=== PATIENT | female | born 1985 | race Caucasian/White ===

== ENCOUNTER 2017-04-19 14:43 | Inpatient (IN) ==
--- NOTE | 2017-04-19 14:12 | OB/GYN History & Physical ---
Date of Encounter: 04/19/17 Time of Encounter: 13:50 Assessment and Plan (1) 39 weeks gestation of Current visit: Yes Status: Acute (2) Uterine contractions Current visit: Yes Status: Acute - NST assessment. - Monitor cervical change. - UDS. History of Present Illness Chief complaint: Uterine contractions HPI: Ms. Carbajal is a 31 year old female at 39 weeks gestation that presents for labor evaluation. Patient says that she has been getting contractions since 0400 am this morning that have been 2.5 minutes apart. She admits to good movement. She denies any vaginal fluid leakage, but she does says that she had some minor vaginal bleeding yesterday. She denies any VALENCIA , vision changes, or nausea. She did have an episode of vomiting yesterday, but denies any hematemesis. She denies any fever, dysuria, or diarrhea. GBS: negative HIV Ag/Ab: non-reactive T. Pallidum Ab: negative Rubella Ab: positive Varicella Ab: positive Blood type: O+ Past Med Surg Social Fam HX - Past Medical History Medical history: non-contributory Psychiatric history: no psych history - Past Surgical History Surgical History: other - Social History Smoking Status: Never smoker Smokeless Tobacco Status: No Alcohol use: none Drug use: none - Family History Mother Living Status: Still Living Hx Family Cardiac Disorders: Yes (HTN) Father Living Status: Still Living Hx Family Endocrine Disorder: Yes Obstetrical History - Pregnancies : 4 Para: 2 Term: 2 : 0 Ab's: 1 Livin Medications and Allergies Ferrous Sulfate 04/09/17 [History] Tablet 04/09/17 [History] Ranitidine HCl 75 mg PO 04/09/17 [History] 3 Allergy/AdvReac Type Severity Reaction Status Date / Time montelukast [From Singulair] AdvReac Nightmare Verified 04/09/17 02:19 Exam - Vital Signs Vital signs: BP: 117/77 HR: 90 FHR: 174 [place]: 21 - Constitutional Constitutional: well developed, well nourished, no acute distress, average body habitus - Lungs Respiratory exam: CTAB - Cardiovascular Cardiovascular exam: RRR, +S1, +S2 - Abdomen Abdomen: Present: bowel sounds normal, gravid, non tender - Extremities Extremities exam: full ROM, normal capillary refill, normal inspection, radial pulses palpable and symmetrical Deep Tendon Reflex Grade: 2+ Normal - Cervix Dilation: 5 (per nurse) Effacement: 90 (per nurse) Station: -1 Results All other labs normal. - VTE Reasons for not Prescribing Prophylaxis: Treatment not Indicated - Low risk for VTE - Attending Attestation I examined this patient and my medical decision-making was reviewed with the Resident Physician. I agree with the documented findings, disposition and treatment plan as described except to the extent set forth below. Liban Long
[~2017-04-19 14:43] MED LIST: Famotidine 20 MG/2 ML VIAL IVP PRN; Naloxone 0.4 MG/ML INJ IVP PRN; Ringers Solution, Lactated 1,000 ML ONE
[2017-04-19 14:45] LABS: Basophils % 0.2 %; Eosinophils # 0.1 K/mcL (0.0-0.6); Eosinophils % 0.6 %; Hematocrit 30.7 % (35.3-44.9); Hemoglobin 10.6 g/dL (11.5-15.4); Immature Granulocytes % 0.5 % (0-4); Lymphocytes % 19.2 %; Mean Corpuscular HGB Conc 34.5 g/dL (31.6-35.5); Mean Corpuscular Hemoglobin 31.1 pg (28.0-33.3); Mean Platelet Volume 9.2 fL (9.4-12.4); Monocytes # 0.7 K/mcL (0.0-1.3); Monocytes % 6.7 %; Neutrophils # 7.6 K/mcL (1.6-8.9); Platelet Count 367 K/mcL (140-400); Red Blood Count 3.41 M/mcL (3.82-4.97); Red Cell Distribution Width 13.2 % (11.5-14.5); Segmented Neutrophils % 72.8 %
[2017-04-19] MEDS ORDERED: Ringers Solution, Lactated 1,000 ML IVC SCH (14:45)
--- NOTE | 2017-04-19 14:47 | OB Labor Progress Note ---
Date of Encounter: 04/19/17 Time of Encounter: 14:45 Labor Progress Note - Subjective Subjective: patient states contractions are getting stronger - Cervix Cervix: 6/90/0 AROM clear fluid - Heart Tones Heart Tones: FSM placed FHT's 120-130 reactive with accelerations noted - [place]: IUPC placed contractions every 3 min - Plan Plan: continue current care anticipate
[2017-04-19 14:51] LABS: Amphetamine Screen,Urine Negative ng/mL (Cutoff=1000); Barbiturate Screen,Urine Negative ng/mL (Cutoff=200); Benzodiazepines Screen,Urine Negative ng/mL (Cutoff=200); Cannabinoid Screen,Urine Negative ng/mL (Cutoff = 50); Cocaine Screen,Urine Negative ng/mL (Cutoff= 300); Opiate Screen,Urine Negative ng/mL (Cutoff=300); Phencyclidine Screen,Urine Negative ng/mL (Cutoff=25)
[2017-04-19] MEDS ORDERED: Lidocaine 1% 20 ML MDV ONE (15:48)
[2017-04-19] MEDS ORDERED: Oxytocin 20 units/ LR 1000 mL 20 UNIT/1,000 ML BAG IVC ONE (15:56)
[2017-04-19] MEDS ORDERED: *HR* Oxytocin 10 UNIT/ML VIAL IM ONE (16:00)
--- NOTE | 2017-04-19 16:15 | OB/GYN Procedure Note ---
Delivery - Delivery Date: 04/19/17 Provider: Felipe Long Intrapartum events: precipitous labor- <3hr Delivery induction: none Delivery augmentation: rupture of membranes Delivery monitor: external FHT, external uterine, internal FHT, internal uterine Anesthesia: local Estimated Blood Loss: 200 - (s) A Delivery Date: 04/19/17 Delivery Time: 15:47 Presentation: vertex Position: NOMAN Route of delivery: Gender: Female Viability: Viable Pounds: 7 Ounces: 10 Weight Gram: 3.45 kg at 1 minute: 8 at 5 mins: 9 Shoulder Dystocia: not encountered Shoulder Dystocia Maneuvers: João maneuver Specimens collected: cord blood Placenta: spontaneous Cord: nuchal cord - Repair Episiotomy: none Laceration Description: Perineal - 1st Degree (left with extension into labia minora) - Complications Delivery complications: none Delivery comments: Patient is a 31-year-old 4 para 2011 39-0/7 weeks who presented for evaluation for labor. Upon arrival to labor and delivery patient was noted to be in active labor tiffanie every 2-3 minutes and was 5 cm. Patient has a history of cone quickly once in labor she was admitted she was artificially ruptured and internalized and she was 6 cm. Patient progressed rapidly decreased warrants delivering a viable female in right occiput anterior presentation at 1547. There was no nuchal cord but it was a compound presentation. There was no meconium, was bulb suctioned on the abdomen, weight was 7 lbs. 10 oz. Placenta was sent to [facility] with three- vessel cord, marketing content coordinator Dr. Long, event sales assistant Dr Sewell PGY1, anesthesia local, estimated blood loss 200 mL. Patient had a left periurethral extending into the left labia minora repaired with 4-0 Vicryl in usual fashion. Cervix and vagina was visualized intact. She had a small periurethral abrasion was not bleeding no stitches needed. Uterus was explored fundus was palpated no retained products noted. Patient tolerated the delivery well she will be observed 2 rows before being taken floor. All needles lap sponge counts were correct 3. - Disposition Mom disposition: stable in LDR [place] disposition: stable in LDR
[2017-04-19] MEDS ORDERED: Ibuprofen 600 MG TABLET PO PRN (18:20)
[2017-04-19] MEDS ORDERED: Acetaminophen 325 MG TABLET PO PRN (18:20)
[2017-04-19] MEDS: Acetaminophen 325 MG TABLET PO PRN (20:44)
[2017-04-20] MEDS: Acetaminophen 325 MG TABLET PO PRN ×2 (04:45→16:10)
[2017-04-20 05:13] LABS: Basophils % 0.3 %; Eosinophils # 0.1 K/mcL (0.0-0.6); Eosinophils % 0.7 %; Hemoglobin 10.6 g/dL (11.5-15.4); Immature Granulocytes % 0.8 % (0-4); Lymphocytes # 2.2 K/mcL (0.6-4.6); Mean Corpuscular HGB Conc 34.2 g/dL (31.6-35.5); Mean Corpuscular Volume 90.6 fL (83.0-100.0); Mean Platelet Volume 9.3 fL (9.4-12.4); Monocytes # 1.2 K/mcL (0.0-1.3); Monocytes % 7.8 %; Neutrophils # 11.2 K/mcL (1.6-8.9); Platelet Count 313 K/mcL (140-400); Red Blood Count 3.42 M/mcL (3.82-4.97); Red Cell Distribution Width 13.1 % (11.5-14.5); Segmented Neutrophils % 75.4 %
[2017-04-20] MEDS ORDERED: Prenatal Vit/FA 1 EACH TABLET PO SCH ×2 (09:00)
--- NOTE | 2017-04-20 09:07 | OB/GYN Progress Note ---
Date of Encounter: 04/20/17 Time of Encounter: 09:02 - Assessment and Plan (1) Vaginal delivery Current Visit: Yes Status: Acute Patient is recovering well s/p normal vaginal delivery -Stable, PPD#1 -Meeting all post milestones -Anticipate discharge tomorrow, unless patient desires discharge today. Subjective - Subjective Principal diagnosis: Vaginal Delivery Interval history: 31 yo female s/p spontaneous vaginal delivery. This morning she is resting comfortably. Patient reports heavy vaginal bleeding but not soaking 1 pad per hour or large clots. She reports is going well and that her milk is in. She denies any shortness of breath, headaches, abdominal pain, or trouble urinating. Patient reports: appetite normal, voiding normally, pain well controlled, ambulating normally Felch: doing well, nursing well Objective - Latest Vital Signs Latest vital signs: Vital Signs Temp Pulse Pulse Resp BP Pulse Ox 04/20/17 07:40 97.7 F 80 16 111/75 98 04/20/17 04:00 97.9 F 84 80 16 118/80 04/19/17 20:10 97.9 F 85 16 108/71 98 04/19/17 20:00 16 04/19/17 18:58 98.3 F 85 14 119/68 99 04/19/17 18:00 98 F 69 14 116/75 100 Intake and Output 04/19/17 04/20/17 04/20/17 23:59 07:59 15:59 Output Total 300 / 300 1050 / 1050 Balance -300 / -300 -1050 / -1050 Output: Urine 300 / 300 1050 / 1050 Other: # Voids 2 Weight 76.793 kg 77.7 kg Patient Weight 04/20/17 23:59 Weight 77.7 kg - Exam Lungs: bilateral: normal Chest: Normal S1, Normal S2 Extremities: Present: normal. Absent: tenderness, edema Abdomen: Present: normal appearance, soft. Absent: tenderness Uterus: Present: normal, firm Uterus Position: 1 Finger Below Umbilicus - Labs Labs: Laboratory Results - last 24 hr 04/19/17 04/19/17 04/20/17 14:20 14:20 05:06 WBC 10.5 14.9 H RBC 3.41 L 3.42 L Hgb 10.6 L 10.6 L Hct 30.7 L 31.0 L MCV 90.0 90.6 MCH 31.1 31.0 MCHC 34.5 34.2 RDW 13.2 13.1 Plt Count 367 313 MPV 9.2 L 9.3 L Immature Gran % 0.5 0.8 Seg Neutrophils % 72.8 75.4 Lymphocytes % 19.2 15.0 Monocytes % 6.7 7.8 Eosinophils % 0.6 0.7 Basophils % 0.2 0.3 Neutrophils # 7.6 11.2 H Lymphocytes # 2.0 2.2 Monocytes # 0.7 1.2 Eosinophils # 0.1 0.1 Basophils # 0.0 0.0 Immature Plt Fraction 2.0 Urine Opiates Screen Negative Ur Barbiturates Screen Negative Ur Phencyclidine Scrn Negative Ur Amphetamines Screen Negative U Benzodiazepines Scrn Negative Urine Cocaine Screen Negative U Marijuana (THC) Screen Negative
[2017-04-20] MEDS ORDERED: Ibuprofen 600 MG TABLET PO PRN (20:42)
[2017-04-20 22:23] VITALS: BP 114/76
--- NOTE | 2017-04-20 23:34 | Discharge Summary ---
Date of Encounter: 04/20/17 Time of Encounter: 23:32 - Discharge Diagnosis (1) Vaginal delivery Priority: Primary Status: Acute Comments: Pt states pain well managed, , bleeding has improved, desires discharge in early AM. - Discharge Medications Prescriptions: Ibuprofen [Motrin] 600 mg PO Q6HR PRN #60 tablet PRN Reason: Cramping Docusate [Colace] 100 mg PO BID #60 capsule Home Medications: Ferrous Sulfate 04/09/17 [History] Tablet 04/09/17 [History] Ranitidine HCl 75 mg PO 04/09/17 [History] Acetaminophen [Tylenol] 650 mg PO Q6HR PRN tablet 04/20/17 [Rx] Docusate [Colace] 100 mg PO BID #60 capsule 04/20/17 [Rx] Ferrous Sulfate 325 mg PO DAILY tablet 04/20/17 [Rx] Ibuprofen [Motrin] 600 mg PO Q6HR PRN #60 tablet 04/20/17 [Rx] Vit/FA 1 each PO DAILY tablet 04/20/17 [Rx] Allergies/Adverse Reactions: 3 Allergy/AdvReac Type Severity Reaction Status Date / Time montelukast [From [facility]] AdvReac Nightmare Verified 04/09/17 02:19 Data Procedures and tests throughout hospitalization: Laboratory Tests 04/19/17 04/19/17 04/20/17 14:20 14:20 05:06 WBC 10.5 14.9 H RBC 3.41 L 3.42 L Hgb 10.6 L 10.6 L Hct 30.7 L 31.0 L MCV 90.0 90.6 MCH 31.1 31.0 MCHC 34.5 34.2 RDW 13.2 13.1 Plt Count 367 313 MPV 9.2 L 9.3 L Immature Gran % 0.5 0.8 Seg Neutrophils % 72.8 75.4 Lymphocytes % 19.2 15.0 Monocytes % 6.7 7.8 Eosinophils % 0.6 0.7 Basophils % 0.2 0.3 Neutrophils # 7.6 11.2 H Lymphocytes # 2.0 2.2 Monocytes # 0.7 1.2 Eosinophils # 0.1 0.1 Basophils # 0.0 0.0 Immature Plt Fraction 2.0 Urine Opiates Screen Negative Ur Barbiturates Screen Negative Ur Phencyclidine Scrn Negative Ur Amphetamines Screen Negative U Benzodiazepines Scrn Negative Urine Cocaine Screen Negative U Marijuana (THC) Screen Negative Labs on day of discharge: Labs from last 24 hours 04/20/17 05:06 WBC 14.9 H RBC 3.42 L Hgb 10.6 L Hct 31.0 L MCV 90.6 MCH 31.0 MCHC 34.2 RDW 13.1 Plt Count 313 MPV 9.3 L Immature Gran % 0.8 Seg Neutrophils % 75.4 Lymphocytes % 15.0 Monocytes % 7.8 Eosinophils % 0.7 Basophils % 0.3 Neutrophils # 11.2 H Lymphocytes # 2.2 Monocytes # 1.2 Eosinophils # 0.1 Basophils # 0.0 Date of admission: 04/19/17 14:43 Primary care physician: PCP NONE Consults: 04/19/17 18:20 Consult to Lasting Floorworker [CONS] Routine Comment: Vaginal delivery, consult needed Discharging clinician: Alysia Ríos Anticipated date of discharge: 04/20/17 - Patient Status Disposition: Home, Self-Care Condition: Good Functional capacity at discharge: independent ambulation Overall status at discharge: patient is back to baseline - Discharge Instructions Follow Up With: NONE,PCP [Primary Care Provider] - - Diet and Activity Activity: resume usual activities as tolerated Diet: regular diet Hospital Course Reason for admission: active labor Delivery: Episiotomy: none Laceration: 1st degree Other procedures: none complications: none Discharge diagnosis: IUP at term delivered baby: male Hospital course: Delivery - Delivery Date: 04/19/17 Provider: Felipe Long Intrapartum events: precipitous labor- <3hr Delivery induction: none Delivery augmentation: rupture of membranes Delivery monitor: external FHT, external uterine, internal FHT, internal uterine Anesthesia: local Estimated Blood Loss: 200 - Infant (s) Infant A Delivery Date: 04/19/17 Delivery Time: 15:47 Presentation: vertex Position: NOMAN Route of delivery: Gender: Female Viability: Viable Pounds: 7 Ounces: 10 Weight Gram: 3.45 kg at 1 minute: 8 at 5 mins: 9 Shoulder Dystocia: not encountered Shoulder Dystocia Maneuvers: João maneuver Specimens collected: cord blood Placenta: spontaneous Cord: nuchal cord - Repair Episiotomy: none Laceration Description: Perineal - 1st Degree (left with extension into labia minora) - Complications Delivery complications: none Delivery comments: Patient is a 31-year-old 4 para 2012 39-0/7 weeks who presented for evaluation for labor. Upon arrival to labor and delivery patient was noted to be in active labor tiffanie every 2-3 minutes and was 5 cm. Patient has a history of cone quickly once in labor she was admitted she was artificially ruptured and internalized and she was 6 cm. Patient progressed rapidly decreased warrants delivering a viable female infant in right occiput anterior presentation at 1547. There was no nuchal cord but it was a compound presentation. There was no meconium, was bulb suctioned on the abdomen, weight was 7 lbs. 10 oz. Placenta was sent to spontaneously with three- vessel cord, dentist attendant Dr. Long, minister assistant Dr Sewell PGY1, anesthesia local, estimated blood loss 200 mL. Patient had a left periurethral extending into the left labia minora repaired with 4-0 Vicryl in usual fashion. Cervix and vagina was visualized intact. She had a small periurethral abrasion was not bleeding no stitches needed. Uterus was explored fundus was palpated no retained products noted. Patient tolerated the delivery well she will be observed 2 rows before being taken floor. All needles lap sponge counts were correct 3. - Disposition Mom disposition: stable in PP and appropriate for discharge Time Attestation: Total time spent providing and/or coordinating discharge services: Time Spent: Less than 30 minutes Exam - Constitutional Vitals: Temp Pulse Resp BP Pulse Ox 98.1 F 74 16 114/76 97 04/20/17 21:00 04/20/17 21:00 04/20/17 21:00 04/20/17 21:00 04/20/17 21:00 General appearance IM: A&O X 3 - Respiratory Respiratory exam: Present: CTAB - Cardiovascular Cardiovascular exam IM: Present: RRR - GI/Abdominal GI/Abdominal exam IM: soft - Uterine Tone: Firm Uterus Position: At Umbilicus - Extremities Exam Extremities exam IM: Present: normal capillary refill, normal inspection - Neurological Exam Neurological exam: normal gait, oriented X3 - Psychiatric Additional comments: Reports good mood.
== END 2017-04-20 23:50 | disposition home or self-care (01) | DRG 560 ==
LOC: 1NENULAB → 1NENUOBS 18:00
PROVIDERS: ADMIT Obstetrics & Gynecology; ATTEND Obstetrics & Gynecology

== ENCOUNTER 2018-11-29 07:53 | Inpatient (IN) ==
[2018-11-29] MEDS ORDERED: Ondansetron 4 MG/2 ML VIAL IVP PRN (08:01)
[2018-11-29] MEDS ORDERED: *HR* Nalbuphine 10 MG/ML AMPUL IVP PRN (08:01)
[2018-11-29] MEDS ORDERED: Famotidine 20 MG/2 ML VIAL IVP PRN (08:01)
[2018-11-29] MEDS ORDERED: Metoclopramide 10 MG/2 ML VIAL IVP PRN (08:01)
[2018-11-29] MEDS ORDERED: Naloxone 0.4 MG/ML INJ IVP PRN (08:01)
[2018-11-29] MEDS ORDERED: Ringers Solution, Lactated 1,000 ML IVC SCH (08:15)
[2018-11-29 08:30] LABS: White Blood Count 10.8 K/mcL (4.3-11.1)
[2018-11-29 08:31] LABS: Basophils % 0.3 %; Eosinophils # 0.1 K/mcL (0.0-0.6); Eosinophils % 1.1 %; Hematocrit 33.7 % (35.3-44.9); Hemoglobin 11.6 g/dL (11.5-15.4); Immature Granulocytes % 0.6 % (0-4); Lymphocytes # 1.8 K/mcL (0.6-4.6); Lymphocytes % 17.1 %; Mean Corpuscular HGB Conc 34.4 g/dL (31.6-35.5); Mean Corpuscular Hemoglobin 32.1 pg (28.0-33.3); Mean Corpuscular Volume 93.4 fL (83.0-100.0); Mean Platelet Volume 9.6 fL (9.4-12.4); Monocytes # 0.7 K/mcL (0.0-1.3); Monocytes % 6.8 %; Platelet Count 267 K/mcL (140-400); Red Blood Count 3.61 M/mcL (3.82-4.97); Red Cell Distribution Width 13.5 % (11.5-14.5); Segmented Neutrophils % 74.1 %
[2018-11-29 08:34] LABS: Amphetamine Screen,Urine Negative ng/mL (Cutoff=1000); Barbiturate Screen,Urine Negative ng/mL (Cutoff=200); Benzodiazepines Screen,Urine Negative ng/mL (Cutoff=200); Cannabinoid Screen,Urine Negative ng/mL (Cutoff = 50); Cocaine Screen,Urine Negative ng/mL (Cutoff= 300); Opiate Screen,Urine Negative ng/mL (Cutoff=300); Phencyclidine Screen,Urine Negative ng/mL (Cutoff=25)
--- NOTE | 2018-11-29 08:36 | OB/GYN History & Physical ---
Date of Encounter: 11/29/18 Time of Encounter: 08:33 Assessment and Plan (1) and not yet delivered in third trimester Current visit: Yes Status: Acute (2) Elective induction of labor planned Current visit: Yes Status: Acute We will start Pitocin per protocol plan is to anticipate vaginal delivery (3) 39 weeks gestation of Current visit: No Status: Acute History of Present Illness HPI: Ms. Carbajal is a 33 year old female 5 para 3013 at 39-0/7 weeks who presented for induction of labor secondary with favorable cervix. Patient was seen office last week was noted to be 5 cm dilated has been having contractions for the past few weeks and it was felt since she goes relatively fast once she hit 39 weeks should report in for an induction. She is tiffanie every 2-4 minutes on her own she is feeling them but nothing that is uncomfortable. She states for the last after she was ruptured she delivered within an hour. Patient is not wanting an epidural at this time. Patient's course has been unremarkable. She denies any leaking of fluid still having good movement. Patient is GBS negative, O+, rubella positive, Varicella positive. Past Med Surg Social Fam HX - Past Medical History Source: patient, old records reviewed Medical history: non-contributory Additional medical history: Hx lyme disease when she was a child Psychiatric history: no psych history - Past Surgical History Surgical History: other Additional surgical history: dental surgery - Social History Smoking Status: Never smoker Smokeless Tobacco Status: No Alcohol use: none Drug use: none Occupational status: employed Current living situation: Home - Independent Activity Level: Independent ambulation Recent Out of Country Travel Within the Last 8 Weeks: No Exposure or Possible Exposure to Illness During Travel: No - Family History Mother Living Status: Still Living Hx Family Cardiac Disorders: Yes (HTN) Father Living Status: Still Living Hx Family Endocrine Disorder: Yes - Additional Family History Additional family history: Family history noncontributory Obstetrical History - Pregnancies : 5 Para: 3 Term: 3 : 0 Ab's: 1 Livin Medications and Allergies Tablet 04/09/17 [History] Ferrous Sulfate 325 mg PO DAILY tablet 04/20/17 [Rx] Allergy/AdvReac Type Severity Reaction Status Date / Time montelukast [From Singulair] AdvReac Nightmare Verified 04/09/17 02:19 Review of System OB All systems PM: reviewed and no additional remarkable complaints except as s tated - Menstruation Menstruation: other (Complaining of contractions every 3-5 minutes for the past couple weeks still tolerable) Exam - Constitutional Constitutional: well developed, well nourished, no acute distress, average body habitus - HEENT HEENT: EOMI, PERRL, Normocephaly, Mucus Membranes Moist - Neck Neck exam: full ROM - Lungs Respiratory exam: CTAB - Cardiovascular Cardiovascular exam: RRR - Abdomen Abdomen: Present: bowel sounds normal, gravid ( heart tones 140s reactive contractions every 2-3 minutes irregular) - Cervix Dilation: 5 Effacement: 80 Station: 0 - Uterus Uterus exam: Present: enlarged Results Result Diagrams: 11/29/18 08:10 Abnormal lab results RBC 3.61 M/mcL (3.82-4.97) L 11/29/18 08:10 Hct 33.7 % (35.3-44.9) L 11/29/18 08:10 All other labs normal. - VTE Reasons for not Prescribing Prophylaxis: Treatment not Indicated - Low risk for VTE
[2018-11-29] MEDS ORDERED: Oxytocin 20 units/ LR 1000 mL 20 UNIT/1,000 ML BAG IVC SCH ×2 (08:45→16:01)
[2018-11-29] MEDS ORDERED: Oxytocin 20 units/ LR 1000 mL 20 UNIT/1,000 ML BAG IVC ONE (09:02)
--- NOTE | 2018-11-29 10:17 | Anesthesia Evaluation PreOp ---
Date of Encounter: 11/29/18 Time of Encounter: 10:12 - Past History Planned Operation: Del, term induction Cardiac History: Denies any Significant Hx Pulmonary History: Denies Any Significant HX JEWELRY MOLD MAKER History: Denies Any Significant HX Other Medical History: Denies Any Significant HX Anesthesia History: No Prior Anesthetic Complications, Past Anesthesia (vaginal del (without epidurals in past), wisdom teeth, no other anesthesia related comp. does not want regional at this time.) Alcohol Use: none Drug use: none Medications and Allergies Tablet 04/09/17 [History] Ferrous Sulfate 325 mg PO DAILY tablet 04/20/17 [Rx] Allergy/AdvReac Type Severity Reaction Status Date / Time montelukast [From Singulair] AdvReac Nightmare Verified 04/09/17 02:19 Anesthesia Results - Labs 11/29/18 08:10 Anesthesia Exam - HEENT Pupil (Motor): Pupils equal Mallampati: I Teeth: Normal Oral Opening: Greater than 3 - JEWELRY MOLD MAKER LOC: Oriented JEWELRY MOLD MAKER Motor: Normal RUE, Normal LUE, Normal RLE, Normal LLE, Normal Face JEWELRY MOLD MAKER Sensory: Normal: RUE, LUE, RLE, LLE, Face - Cardiac Rhythm: Regular Murmur: None - Pulmonary Breath Sounds: bilateral Clear Respiratory Effort: Symmetrical Anesthesia Assess/Plan ASA Score: 2 Level of consciousness: Cooperative, Oriented Anesthetic Plan: General, Spinal, Epidural Monitoring Plan: Standard Monitors Recovery Plan: PACU
--- NOTE | 2018-11-29 11:39 | OB Labor Progress Note ---
Date of Encounter: 11/29/18 Time of Encounter: 11:37 Labor Progress Note - Subjective Subjective: Patient states contractions getting more uncomfortable but still tolerating them. Still does not want epidural - Cervix Cervix: /0 AROM large amount clear fluid - Heart Tones Heart Tones: heart tones 140s reactive - [place]: Contractions every 2 minutes - Interventions Interventions: Continue current care and anticipate vaginal delivery
[2018-11-29] MEDS ORDERED: Lidocaine -MPF 1% 5 ML AMPUL ONE (13:04)
--- NOTE | 2018-11-29 13:49 | OB/GYN Procedure Note ---
Delivery - Delivery Date: 11/29/18 Provider: Felipe Long Intrapartum events: none Delivery induction: oxytocin Delivery augmentation: rupture of membranes Delivery monitor: external FHT, external uterine Anesthesia: local, epidural Quantitated Blood Loss: 100 - Infant (s) Infant A Delivery Date: 11/29/18 Delivery Time: 13:14 Presentation: vertex Position: OA Route of delivery: Gender: Female Viability: Viable Pounds: 7 Ounces: 14 Weight Gram: 3.57 kg at 1 minute: 9 at 5 mins: 9 Shoulder Dystocia: not encountered Specimens collected: cord blood Placenta: spontaneous Cord: 3 umbilical vessels - Repair Episiotomy: none Laceration Description: Periurethral (left), Perineal - 1st Degree - Complications Delivery complications: none Delivery comments: Patient is a 33-year-old 5 para 3013 at 39 0/7wks who was brought in for induction of labor secondary to with favorable cervix. Patient was 5 cm in the office and has a history of fast labors. She reported to labor and delivery where she was noted to be 5-6 cm she was having occasional contractions. She was started on Pitocin once having adequate contractions she was artificially ruptured with large amounts of clear fluid. Patient progressed rapidly within an hour and a half patient was complete and pushed once and delivered a viable female in occiput anterior presentation at 1314. There was no nuchal cord, no meconium, was bulb suctioned the abdomen. Apgars were 9 at one and 9 at 5 minutes, weight was 7lbs 14oz. Shipwright Supervisor Dr. oLng, anesthesia epidural local, estimated blood loss 100 mL. Patient had a small second-degree perineal laceration with a left periurethral laceration. These were both repaired with 3-0 Vicryl in usual fashion. Cervix and vagina was visualized intact. Patient tolerated the delivery well. She will be observed 2 hours before being taken to the floor. - Disposition Mom disposition: stable in LDR disposition: stable in LDR
[2018-11-29] MEDS: Ibuprofen 600 MG TABLET PO PRN (16:25)
[2018-11-29] MEDS: Acetaminophen 325 MG TABLET PO PRN (20:52)
[2018-11-30] MEDS: Ibuprofen 600 MG TABLET PO PRN (04:04)
[2018-11-30 04:30] VITALS: BP 117/75
[2018-11-30] MEDS: Acetaminophen 325 MG TABLET PO PRN (08:04)
[2018-11-30] MEDS ORDERED: Prenatal Vit/FA 1 EACH TABLET PO SCH (09:00)
--- NOTE | 2018-11-30 09:01 | Discharge Summary ---
Date of Encounter: 11/30/18 Time of Encounter: 08:59 - Discharge Diagnosis (1) Vaginal delivery Priority: Primary Status: Acute Comments: Stable, meeting all PP milestones, pain well managed, tolerates diet, , bleeding minimal - Discharge Medications Prescriptions: New Acetaminophen [Tylenol] 650 mg PO Q6HR PRN tablet PRN Reason: Mild Pain Ibuprofen [Motrin] 600 mg PO Q6HR PRN #60 tablet PRN Reason: Cramping Docusate [Colace] 100 mg PO BID #30 capsule Continued Tablet Discontinued Ferrous Sulfate 325 mg PO DAILY tablet Home Medications: Tablet 04/09/17 [History] Acetaminophen [Tylenol] 650 mg PO Q6HR PRN tablet 11/30/18 [Rx] Docusate [Colace] 100 mg PO BID #30 capsule 11/30/18 [Rx] Ibuprofen [Motrin] 600 mg PO Q6HR PRN #60 tablet 11/30/18 [Rx] Allergies/Adverse Reactions: Allergy/AdvReac Type Severity Reaction Status Date / Time montelukast [From [facility]] AdvReac Nightmare Verified 04/09/17 02:19 Data Procedures and tests throughout hospitalization: Laboratory Tests 11/29/18 11/29/18 08:10 08:10 WBC 10.8 RBC 3.61 L Hgb 11.6 Hct 33.7 L MCV 93.4 MCH 32.1 MCHC 34.4 RDW 13.5 Plt Count 267 MPV 9.6 Immature Gran % 0.6 Seg Neutrophils % 74.1 Lymphocytes % 17.1 Monocytes % 6.8 Eosinophils % 1.1 Basophils % 0.3 Neutrophils # 8.0 Lymphocytes # 1.8 Monocytes # 0.7 Eosinophils # 0.1 Basophils # 0.0 Urine Opiates Screen Negative Ur Barbiturates Screen Negative Ur Phencyclidine Scrn Negative Ur Amphetamines Screen Negative U Benzodiazepines Scrn Negative Urine Cocaine Screen Negative U Marijuana (THC) Screen Negative Ur Drug Screen Interp See Below Date of admission: 11/29/18 07:53 Primary care physician: Vladimir Pham MD Consults: 11/29/18 16:01 Consult to Compressed Gases Tester [CONS] Routine Comment: Vaginal delivery, consult needed Discharging clinician: Alysia Ríos Anticipated date of discharge: 11/30/18 - Patient Status Disposition: Home, Self-Care Condition: Good Functional capacity at discharge: independent ambulation Overall status at discharge: patient is progressing back to baseline - Discharge Instructions Follow Up With: Vladimir Pham MD [Primary Care Provider] - Alysia Ríos CNM [Advanced Practice Nurse] - - Diet and Activity Activity: resume usual activities as tolerated Diet: regular diet Hospital Course Reason for admission: induction of labor, IUP at term Delivery: Episiotomy: none Laceration: 1st degree Other procedures: none complications: none Discharge diagnosis: IUP at term delivered baby: female Hospital course: Delivery - Delivery Date: 11/29/18 Provider: Felipe Long Intrapartum events: none Delivery induction: oxytocin Delivery augmentation: rupture of membranes Delivery monitor: external FHT, external uterine Anesthesia: local, epidural Quantitated Blood Loss: 100 - (s) A Delivery Date: 11/29/18 Delivery Time: 13:14 Presentation: vertex Position: OA Route of delivery: Gender: Female Viability: Viable Pounds: 7 Ounces: 14 Weight Gram: 3.57 kg at 1 minute: 9 at 5 mins: 9 Shoulder Dystocia: not encountered Specimens collected: cord blood Placenta: spontaneous Cord: 3 umbilical vessels - Repair Episiotomy: none Laceration Description: Periurethral (left), Perineal - 1st Degree - Complications Delivery complications: none Delivery comments: Patient is a 33-year-old 5 para 3013 at 39 0/7wks who was brought in for induction of labor secondary to with favorable cervix. Patient was 5 cm in the office and has a history of fast labors. She reported to labor and delivery where she was noted to be 5-6 cm she was having occasional contracti ons. She was started on Pitocin once having adequate contractions she was artificially ruptured with large amounts of clear fluid. Patient progressed rapidly within an hour and a half patient was complete and pushed once and delivered a viable female in occiput anterior presentation at 1314. There was no nuchal cord, no meconium, was bulb suctioned the abdomen. Apgars were 9 at one and 9 at 5 minutes, weight was 7lbs 14oz. Field Trainer Dr. Long, anesthesia epidural local, estimated blood loss 100 mL. Patient had a small second-degree perineal laceration with a left periurethral laceration. These were both repaired with 3-0 Vicryl in usual fashion. Cervix and vagina was visualized intact. Patient tolerated the delivery well. She will be observed 2 hours before being taken to the floor. - Disposition Mom disposition: stable in PP and appropriate for discharge Time Attestation: Total time spent providing and/or coordinating discharge services: Time Spent: Less than 30 minutes Exam - Constitutional Vitals: Temp Pulse Resp BP Pulse Ox 98.0 F 86 14 117/75 98 11/30/18 04:00 11/30/18 04:00 11/30/18 04:00 11/30/18 04:00 11/30/18 04:00 General appearance IM: A&O X 3 - Respiratory Respiratory exam: Present: CTAB - Cardiovascular Cardiovascular exam IM: Present: RRR - GI/Abdominal GI/Abdominal exam IM: soft - Uterine Tone: Firm Uterus Position: At Umbilicus - Extremities Exam Extremities exam IM: Present: normal capillary refill, normal inspection - Neurological Exam Neurological exam: normal gait, oriented X3 - Psychiatric Additional comments: reports good mood
== END 2018-11-30 16:14 | disposition home or self-care (01) | DRG 560 ==
LOC: 1NENULAB 07:53 → 1NENUOBS 16:03
PROVIDERS: ADMIT Obstetrics & Gynecology; ATTEND Obstetrics & Gynecology